=== PATIENT | female | born 1960 | race Caucasian/White ===

== ENCOUNTER 2019-02-16 13:53 | Inpatient (IN) | payer MEDICARE, OTHER ==
[~2019-02-16] VITALS: Ht 162.6 cm; Wt 114.0 kg
[2019-02-16] MEDS ORDERED: ASPI-556 PO (14:00)
[2019-02-16] MEDS ORDERED: ISOS5TAB5 PO (14:00)
[2019-02-16 14:19] LABS: BASOPHILS % (AUTO) 0.8 % (0.0-2.0); EOSINOPHILS % (AUTO) 0.5 % (1.0-6.0); HEMATOCRIT 40.4 % (36-46); HEMOGLOBIN 13.9 g/dL (12.0-16.0); LYMPHOCYTES # (AUTO) 2.1 K/uL (1.0-4.8); LYMPHOCYTES % (AUTO) 45.4 % (22.0-44.0); MEAN CORPUSCULAR HEMOGLOBIN 29.5 pg (26.0-34.0); MEAN CORPUSCULAR HGB CONC 34.3 G/dL (31.0-37.0); MEAN CORPUSCULAR VOLUME 86 fL (80-100); MONOCYTES # (AUTO) 0.6 K/uL (0.1-1.0); NEUTROPHILS # (AUTO) 1.9 K/uL (1.8-7.7); NEUTROPHILS % (AUTO) 40.3 % (40.0-70.0); PLATELET COUNT (AUTO) 186 K/uL (150-450); RED CELL DISTRIBUTION WIDTH 13.6 % (11.5-14.5)
[2019-02-16 14:27] LABS: CALCIUM, TOTAL 9.2 mg/dL (8.8-10.5); CREATININE 1.05 mg/dL (0.60-1.30); POTASSIUM 3.6 mmol/L (3.5-5.1)
[2019-02-16 14:33] LABS: ALBUMIN 3.8 g/dL (3.4-5.0); BILIRUBIN,TOTAL 0.5 mg/dL (0.1-1.0); TOTAL PROTEIN, SERUM 8.4 g/dL (6.4-8.2)
[2019-02-16] MEDS ORDERED: ASPIRIN 325 MG TABLET PO ONE (16:15)
[2019-02-16] MEDS ORDERED: NITROGLYCERIN 2% (1 GM=INCH) PACKET TP ONE (16:15)
[2019-02-16] MEDS ORDERED: ACETAMINOPHEN 325 MG TABLET PO PRN (16:30)
[2019-02-16] MEDS ORDERED: OxyCODONE HCL/ACETAMINOPHEN 5-325 MG TABLET PO PRN (16:30)
[2019-02-16] MEDS ORDERED: DEXTROSE 50%-WATER 25 GM/50 ML SYRINGE IVP PRN (16:30)
[2019-02-16] MEDS ORDERED: INSULIN LISPRO 100 UNITS/ML SQ PRN (16:30)
[2019-02-16] MEDS: FAMOTIDINE 20 MG TABLET PO SCH (16:44)
[2019-02-16 19:42] VITALS: BP 142/75
[2019-02-16] MEDS ORDERED: ATORVASTATIN CALCIUM 20 MG TABLET PO SCH (21:00)
[2019-02-16 21:20] VITALS: BP 148/80
[2019-02-16] MEDS: DOCUSATE SODIUM 100 MG CAPSULE PO SCH (21:37)
[2019-02-17 00:25] VITALS: BP 136/78
[2019-02-17 04:37] VITALS: BP 111/63
[2019-02-17] MEDS ORDERED: PNEUMOCOCCAL VACCINE POLYVALENT 0.5 ML VIAL [PPSV23] IM ONE (06:30)
[2019-02-17 07:54] LABS: GLUCOMETER DEV NAME(LOC) 5S.1; GLUCOSE,POINT OF CARE 176 MG/DL (70-110)
[2019-02-17 08:06] VITALS: BP 142/78
[2019-02-17 08:07] VITALS: BP 142/78
[2019-02-17] MEDS ORDERED: ASPIRIN 81 MG CHEWABLE TABLET PO SCH (09:00)
[2019-02-17] MEDS: FAMOTIDINE 20 MG TABLET PO SCH (09:22)
[2019-02-17] MEDS: DOCUSATE SODIUM 100 MG CAPSULE PO SCH (09:22)
[2019-02-17 11:21] VITALS: BP 128/66
[2019-02-17 15:17] VITALS: BP 131/71
== END 2019-02-17 17:40 | disposition home or self-care (01) | DRG 313 ==
LOC: EMS 13:55 → 5S 18:27
PROVIDERS: ADMIT Internal Medicine; ATTEND Internal Medicine
DX: R07.89 Other chest pain (principal); E44.0 Moderate protein-calorie malnutrition; Z68.41 Body mass index [BMI] 40.0-44.9, adult; E11.9 Type 2 diabetes mellitus without complications; E66.01 Morbid (severe) obesity due to excess calories; I10 Essential (primary) hypertension; Z83.3 Family history of diabetes mellitus
CPT/HCPCS: 93005; 93306; G0378